=== PATIENT | female | born 1980 | race Caucasian/White ===

== ENCOUNTER 2018-07-21 17:20 | Emergency (ER) | payer SELFPAY ==
[~2018-07-21] VITALS: Ht 152.4 cm; Wt 82.0 kg
[2018-07-21 20:38] VITALS: BP 160/82
== END 2018-07-21 22:10 | disposition left against medical advice (07) ==
LOC: ER 17:43
DX: T62.91XA Toxic effect of unspecified noxious substance eaten as food, accidental (unintentional), initial encounter (principal); R11.2 Nausea with vomiting, unspecified; R19.7 Diarrhea, unspecified; Y92.89 Other specified places as the place of occurrence of the external cause
CPT/HCPCS: 99281

== ENCOUNTER 2020-09-28 18:38 | Inpatient (IN) | payer MEDICAID ==
[~2020-09-28] VITALS: Ht 152.4 cm; Wt 81.6 kg
[2020-09-28] MEDS ORDERED: SODIUM CHLORIDE 0.9% 1,000 ML IV ONE (19:15)
[2020-09-28 19:50] LABS: INR 1.4; PROTHROMBIN TIME 14.3 sec (9.6-11.0)
[2020-09-28 19:52] LABS: CHLORIDE 98 mEq/L (98-107)
[2020-09-28 19:56] LABS: ETHANOL BLOOD < 10 mg/dL
[2020-09-28 21:30] LABS: BASOPHILS % 0.4 % (0.0-2.0); HEMATOCRIT. 35.4 % (36.0-48.0); HEMOGLOBIN. 12.2 g/dL (12.0-16.0); LYMPHOCYTES % 11.7 % (20.0-50.0); MEAN CORPUSCULAR HEMOGLOBIN 34.9 pg (28.0-32.0); MEAN CORPUSCULAR VOLUME 101.7 fL (81.0-99.0); MONOCYTES % 10.2 % (2.0-8.0); NEUTROPHILS % 76.7 % (40.0-76.0); RED BLOOD CELL COUNT 3.48 mill/uL (4.2-5.4)
[2020-09-28 21:31] LABS: HEMATOCRIT 33.9 % (36.0-48.0); HEMOGLOBIN 11.9 g/dL (12.0-16.0); MEAN CORPUSCULAR HEMOGLOBIN 35.4 pg (28.0-32.0); MEAN CORPUSCULAR VOLUME 100.4 fL (81.0-99.0); RED BLOOD CELL COUNT 3.37 mill/uL (4.2-5.4); RED CELL DISTRIBUTION WIDTH 15.6 % (11.6-14.6)
[2020-09-28 21:55] LABS: PLATELET 22 x1000/uL (130-400)
[2020-09-28 22:34] LABS: MEAN PLATELET VOLUME 10.7 fl (7.4-10.4)
[2020-09-29 00:02] LABS: CLARITY URINE CLEAR (CLEAR); COLOR URINE DARK YELLOW (YELLOW); KETONES URINE TRACE (NEGATIVE); LEUKOCYTE ESTERASE URINE 1+ (NEGATIVE); NITRITE URINE POSITIVE (NEGATIVE); OCCULT BLOOD URINE NEGATIVE (NEGATIVE); PROTEIN URINE 1+ (NEGATIVE); SPECIFIC GRAVITY URINE 1.015 (1.005-1.030)
[2020-09-29 00:13] LABS: *AMPHETAMINES SCREEN URINE NEGATIVE (NEGATIVE)
[2020-09-29 00:14] LABS: *BARBITURATES SCREEN URINE NEGATIVE (NEGATIVE); *BENZODIAZEPINES SCREEN URINE NEGATIVE (NEGATIVE); *COCAINE SCREEN URINE NEGATIVE (NEGATIVE); METHADONE URINE SCREEN NEGATIVE (NEGATIVE); OPIATES URINE SCREEN NEGATIVE (NEGATIVE); PHENCYCLIDINE URINE SCREEN NEGATIVE (NEGATIVE)
[2020-09-29 00:15] LABS: CANNABINOID URINE SCREEN NEGATIVE (NEGATIVE)
[2020-09-29 05:00] VITALS: BP 119/78
[2020-09-29] MEDS ORDERED: LORAZEPAM 2MG/ML CPJ IV PRN (05:45)
[2020-09-29] MEDS: LEVETIRACETAM 500MG TABLET PO SCH ×2 (09:35→20:42)
[2020-09-29 09:41] VITALS: BP 120/77
[2020-09-29] MEDS ORDERED: CEFTRIAXONE 1 G PREMIX 50 ML IV SCH (10:00)
[2020-09-29] MEDS ORDERED: ONDANSETRON HCL 4MG/2ML INJ IV PRN (10:00)
[2020-09-29] MEDS ORDERED: ACETAMINOPHEN 325MG TABLET PO PRN (10:00)
[2020-09-29] MEDS: KETOROLAC 30MG/ML VIAL IV PRN ×2 (11:27→20:21)
[2020-09-29] MEDS ORDERED: CEFTRIAXONE 1,000 MG in DEXTROSE 5% WATER 50 ML IV SCH (11:30)
[2020-09-29 12:21] VITALS: BP 113/73
[2020-09-29 15:50] LABS: PLATELET 35 x1000/uL (130-400)
[2020-09-29 16:05] LABS: HEMATOCRIT 34.3 % (36.0-48.0); HEMOGLOBIN 11.7 g/dL (12.0-16.0); MEAN CORPUSCULAR HEMOGLOBIN 34.7 pg (28.0-32.0); MEAN CORPUSCULAR VOLUME 101.5 fL (81.0-99.0); RED BLOOD CELL COUNT 3.37 mill/uL (4.2-5.4); RED CELL DISTRIBUTION WIDTH 15.6 % (11.6-14.6)
[2020-09-29 16:08] VITALS: BP 113/71
[2020-09-29 16:14] LABS: PLATELET 26 x1000/uL (130-400)
[2020-09-29 16:27] LABS: CHLORIDE 102 mEq/L (98-107)
[2020-09-29] MEDS ORDERED: DIPHENHYDRAMINE 25MG CAPSULE PO PRN (17:15)
[2020-09-29] MEDS ORDERED: POTASSIUM CHLORIDE 20MEQ TABLET SR PO NR (18:45)
[2020-09-29 20:00] VITALS: BP 111/85
[2020-09-29] MEDS ORDERED: CHLORDIAZEPOXIDE 25MG CAPSULE PO SCH (22:00)
[2020-09-30] VITALS: BP 115/70
[2020-09-30 04:00] VITALS: BP 115/78
[2020-09-30] MEDS ORDERED: FOLIC ACID 1MG TABLET PO SCH (09:00)
[2020-09-30] MEDS ORDERED: MULTIVITAMINS,THER W-MINERALS TABLET PO SCH (09:00)
[2020-09-30] MEDS ORDERED: THIAMINE HCL 100MG TABLET PO SCH (09:00)
== END 2020-09-30 04:50 | disposition left against medical advice (07) | DRG 720 ==
LOC: ER 18:38 → ENRESERV 09-29 03:38 → 8WST 09-29 04:43
PROVIDERS: ADMIT Internal Medicine; ATTEND Internal Medicine
DX: A41.9 Sepsis, unspecified organism (principal); E87.2 Acidosis; D69.6 Thrombocytopenia, unspecified; E87.1 Hypo-osmolality and hyponatremia; G40.409 Other generalized epilepsy and epileptic syndromes, not intractable, without status epilepticus; K76.0 Fatty (change of) liver, not elsewhere classified; G90.8 Other disorders of autonomic nervous system; D53.9 Nutritional anemia, unspecified; F10.10 Alcohol abuse, uncomplicated; N39.0 Urinary tract infection, site not specified; Z90.49 Acquired absence of other specified parts of digestive tract; Z71.41 Alcohol abuse counseling and surveillance of alcoholic; Z79.899 Other long term (current) drug therapy
CPT/HCPCS: 36415; 70551; 71045; 76705; 80048; 80053; 80305; 80320; 81003; 83605; 85025; 85027; 93005; 99285; J0696; J1885; J7030; J7040; J7060; Q0163; G0480

== ENCOUNTER 2020-12-26 03:40 | Inpatient (IN) | payer MEDICAID ==
[~2020-12-26] VITALS: Ht 172.7 cm; Wt 65.8 kg
[2020-12-26] VITALS (9 sets, daily range): BP systolic 101–135; BP diastolic 67–78
[2020-12-26] MEDS ORDERED: PANTOPRAZOLE SODIUM 40 MG/VIAL IV STA (03:57)
[2020-12-26] MEDS ORDERED: ONDANSETRON HCL 4MG/2ML INJ IV STA (03:57)
[2020-12-26] MEDS ORDERED: SODIUM CHLORIDE 0.9% 1,000 ML IV ONE ×2 (04:00)
[2020-12-26 04:56] LABS: BASOPHILS % 0.5 % (0.0-2.0); EOSINOPHILS % 0.2 % (0.0-5.0); HEMATOCRIT. 25.9 % (36.0-48.0); HEMOGLOBIN. 8.9 g/dL (12.0-16.0); LYMPHOCYTES % 17.3 % (20.0-50.0); MEAN CORPUSCULAR HEMOGLOBIN 35.6 pg (28.0-32.0); MEAN CORPUSCULAR VOLUME 103.2 fL (81.0-99.0); MEAN PLATELET VOLUME 11.3 fl (7.4-10.4); MONOCYTES % 7.9 % (2.0-8.0); NEUTROPHILS % 74.1 % (40.0-76.0); PLATELET 51 x1000/uL (130-400); RED BLOOD CELL COUNT 2.51 mill/uL (4.2-5.4); RED CELL DISTRIBUTION WIDTH 15.2 % (11.6-14.6)
[2020-12-26 05:00] LABS: CHLORIDE 94 mEq/L (98-107)
[2020-12-26 05:04] LABS: INR 1.5; PROTHROMBIN TIME 15.9 sec (9.6-11.0)
[2020-12-26 05:06] LABS: ETHANOL BLOOD < 10 mg/dL
[2020-12-26 05:12] LABS: *AMPHETAMINES SCREEN URINE NEGATIVE (NEGATIVE)
[2020-12-26 05:13] LABS: *BARBITURATES SCREEN URINE NEGATIVE (NEGATIVE); *BENZODIAZEPINES SCREEN URINE NEGATIVE (NEGATIVE); *COCAINE SCREEN URINE NEGATIVE (NEGATIVE); METHADONE URINE SCREEN NEGATIVE (NEGATIVE); OPIATES URINE SCREEN NEGATIVE (NEGATIVE)
[2020-12-26 05:14] LABS: CANNABINOID URINE SCREEN NEGATIVE (NEGATIVE); PHENCYCLIDINE URINE SCREEN NEGATIVE (NEGATIVE)
[2020-12-26 05:23] LABS: HCG SCREEN NEGATIVE
[2020-12-26 05:30] LABS: HEPATITIS B SURFACE ANTIGEN NEGATIVE
[2020-12-26 05:59] LABS: HEPATITIS A AB IGM NEGATIVE (NEGATIVE)
[2020-12-26] MEDS ORDERED: DEXT 5%/0.9% NACL 1,000 ML IV SCH (10:15)
[2020-12-26] MEDS ORDERED: OCTREOTIDE ACETATE 50 MCG/ML 1ML IV NR (10:30)
[2020-12-26] MEDS ORDERED: THIAMINE HCL 100 MG in SODIUM CHLORIDE 0.9% 49 ML IV NR (11:00)
[2020-12-26] MEDS: OCTREOTIDE 1,000 MCG in SODIUM CHLORIDE 0.9% 98 ML IV SCH (11:22)
[2020-12-26] MEDS ORDERED: OCTREOTIDE 1,000 MCG in SODIUM CHLORIDE 0.9% 98 ML IV SCH (11:30)
[2020-12-26] MEDS: METOCLOPRAMIDE HCL 10MG/2ML VIAL IV SCH ×2 (12:09→19:30)
[2020-12-26] MEDS: PHYTONADIONE 10MG/ML AMP SUBCUT SCH (12:24)
[2020-12-26] MEDS ORDERED: PROPOFOL 200MG/20ML VIAL IV ONE ×3 (12:40→13:29)
[2020-12-26] MEDS ORDERED: LIDOCAINE HCL/PF 1% 10 MG/ML 5ML VIAL ONE (12:40)
[2020-12-26] MEDS ORDERED: PHENYLEPHRINE HCL 10 MG/ML 1ML (IV VIAL) IV ONE (13:08)
[2020-12-26] MEDS ORDERED: PHYTONADIONE 10 MG in DEXTROSE 5% WATER 50 ML IV STA (13:08)
[2020-12-26] MEDS ORDERED: MIDAZOLAM HCL 2 MG/2 ML VIAL ONE (13:18)
[2020-12-26] MEDS ORDERED: ONDANSETRON HCL 4MG/2ML INJ ONE (13:26)
[2020-12-26] MEDS ORDERED: MAGNESIUM 2 G PREMIX 50 ML IV NR (14:30)
[2020-12-26 14:33] LABS: HEMATOCRIT 19.7 % (36.0-48.0)
[2020-12-26] MEDS ORDERED: POTASSIUM PHOS,M-BASIC-D-BASIC 20 MMOL in DEXT 5% WATER 243.3333 ML IV NR (15:00)
[2020-12-26] MEDS ORDERED: ONDANSETRON HCL 4MG/2ML INJ IV PRN (17:45)
[2020-12-26] MEDS: PANTOPRAZOLE SODIUM 40 MG/VIAL IV SCH (19:30)
[2020-12-27] VITALS (17 sets, daily range): BP systolic 80–122; BP diastolic 31–87
[2020-12-27] MEDS ORDERED: DIPHENHYDRAMINE 50MG/ML VIAL IV PRN (00:30)
[2020-12-27] MEDS ORDERED: HYDROMORPHONE HCL/PF 2MG/ML CPJ IV NR (00:30)
[2020-12-27 00:37] LABS: HEMATOCRIT 30.4 % (36.0-48.0); HEMOGLOBIN 10.5 g/dL (12.0-16.0)
[2020-12-27] MEDS ORDERED: NALOXONE HCL 0.4MG/ML VIAL IV PRN (00:45)
[2020-12-27] MEDS ORDERED: MORPHINE SULFATE 2 MG/ML CPJ (NOT FOR IM USE) IV PRN (00:45)
[2020-12-27] MEDS: METOCLOPRAMIDE HCL 10MG/2ML VIAL IV SCH ×5 (01:17→23:52)
[2020-12-27] MEDS: DEXT 5%/0.9% NACL 1,000 ML IV SCH ×4 (01:17→23:15)
[2020-12-27] MEDS: MORPHINE SULFATE 2 MG/ML CPJ (NOT FOR IM USE) IV PRN ×2 (01:19→08:57)
[2020-12-27 06:10] LABS: INR 1.3; PROTHROMBIN TIME 13.4 sec (9.6-11.0)
[2020-12-27] MEDS: OCTREOTIDE 1,000 MCG in SODIUM CHLORIDE 0.9% 98 ML IV SCH ×2 (06:12→23:51)
[2020-12-27 06:17] LABS: CHLORIDE 105 mEq/L (98-107)
[2020-12-27 06:33] LABS: BASOPHILS % 1.1 % (0.0-2.0); EOSINOPHILS % 2.8 % (0.0-5.0); HEMATOCRIT. 30.4 % (36.0-48.0); HEMOGLOBIN. 10.3 g/dL (12.0-16.0); LYMPHOCYTES % 33.5 % (20.0-50.0); MEAN CORPUSCULAR HEMOGLOBIN 33.6 pg (28.0-32.0); MEAN CORPUSCULAR VOLUME 98.7 fL (81.0-99.0); MEAN PLATELET VOLUME 9.2 fl (7.4-10.4); MONOCYTES % 12.8 % (2.0-8.0); NEUTROPHILS % 49.8 % (40.0-76.0); PLATELET 55 x1000/uL (130-400); RED BLOOD CELL COUNT 3.08 mill/uL (4.2-5.4); RED CELL DISTRIBUTION WIDTH 19.1 % (11.6-14.6)
[2020-12-27] MEDS ORDERED: POTASSIUM CHLORIDE INJ 40 MEQ in DEXT 5% WATER 250 ML IV ONE (08:00)
[2020-12-27] MEDS: PANTOPRAZOLE SODIUM 40 MG/VIAL IV SCH ×2 (08:40→20:28)
[2020-12-27] MEDS: PHYTONADIONE 10MG/ML AMP SUBCUT SCH (08:41)
[2020-12-27] MEDS ORDERED: FOLIC ACID 1 MG, THIAMINE HCL 100 MG, MVI, ADULT NO.1 10 ML in DEXTROSE 5% WATER 1,000 ML IV SCH (09:00)
[2020-12-27] MEDS: FOLIC ACID 1 MG, THIAMINE HCL 100 MG, MVI, ADULT NO.1 10 ML in DEXTROSE 5% WATER 1,000 ML IV SCH (12:38)
[2020-12-28] VITALS (17 sets, daily range): BP systolic 88–128; BP diastolic 54–81
[2020-12-28] MEDS ORDERED: HYDROCODONE/ACETAMINOPHEN 5/325MG TABLET PO PRN (00:15)
[2020-12-28] MEDS ORDERED: NALOXONE HCL 0.4MG/ML VIAL IV PRN (00:30)
[2020-12-28] MEDS: METOCLOPRAMIDE HCL 10MG/2ML VIAL IV SCH ×3 (06:18→18:13)
[2020-12-28 06:46] LABS: BASOPHILS % 0.8 % (0.0-2.0); EOSINOPHILS % 4.5 % (0.0-5.0); HEMATOCRIT. 30.9 % (36.0-48.0); HEMOGLOBIN. 10.5 g/dL (12.0-16.0); LYMPHOCYTES % 20.3 % (20.0-50.0); MEAN CORPUSCULAR HEMOGLOBIN 34.1 pg (28.0-32.0); MEAN CORPUSCULAR VOLUME 100.4 fL (81.0-99.0); MEAN PLATELET VOLUME 8.9 fl (7.4-10.4); MONOCYTES % 8.6 % (2.0-8.0); NEUTROPHILS % 65.8 % (40.0-76.0); PLATELET 60 x1000/uL (130-400); RED BLOOD CELL COUNT 3.08 mill/uL (4.2-5.4); RED CELL DISTRIBUTION WIDTH 18.8 % (11.6-14.6)
[2020-12-28 07:13] LABS: CHLORIDE 104 mEq/L (98-107)
[2020-12-28] MEDS: PHYTONADIONE 10MG/ML AMP SUBCUT SCH (09:06)
[2020-12-28] MEDS: PANTOPRAZOLE SODIUM 40 MG/VIAL IV SCH ×2 (09:06→20:41)
[2020-12-28] MEDS: FOLIC ACID 1 MG, THIAMINE HCL 100 MG, MVI, ADULT NO.1 10 ML in DEXTROSE 5% WATER 1,000 ML IV SCH ×2 (09:12→09:19)
[2020-12-28] MEDS ORDERED: PROP10TA10 MT (10:53)
[2020-12-28] MEDS ORDERED: OMEP40CA12 MT (10:53)
[2020-12-28] MEDS ORDERED: SUCR1TAB30 MT (10:53)
[2020-12-28] MEDS ORDERED: SODIUM CHLORIDE 0.9% 1,000 ML IV NR (12:45)
[2020-12-28] MEDS ORDERED: CEFTRIAXONE 1 G PREMIX 50 ML IV SCH (16:15)
[2020-12-28 16:24] LABS: HEMATOCRIT 27.8 % (36.0-48.0); HEMOGLOBIN 9.9 g/dL (12.0-16.0)
[2020-12-28 17:34] LABS: CLARITY URINE CLEAR (CLEAR); COLOR URINE YELLOW (YELLOW); KETONES URINE NEGATIVE (NEGATIVE); LEUKOCYTE ESTERASE URINE TRACE (NEGATIVE); NITRITE URINE NEGATIVE (NEGATIVE); OCCULT BLOOD URINE TRACE (NEGATIVE); PH URINE 6.5 (4.5-8.0); PROTEIN URINE NEGATIVE (NEGATIVE); SPECIFIC GRAVITY URINE 1.006 (1.005-1.030)
[2020-12-28] MEDS: CEFTRIAXONE 1,000 MG in DEXTROSE 5% WATER 50 ML IV SCH (18:13)
[2020-12-28] MEDS: ACETAMINOPHEN 325MG TABLET PO PRN (18:15)
[2020-12-28 19:40] LABS: HEMATOCRIT. 27.5 % (36.0-48.0); HEMOGLOBIN. 9.9 g/dL (12.0-16.0); MEAN CORPUSCULAR HEMOGLOBIN 34.6 pg (28.0-32.0); MEAN CORPUSCULAR VOLUME 96.5 fL (81.0-99.0); MEAN PLATELET VOLUME 9.2 fl (7.4-10.4); PLATELET 54 x1000/uL (130-400); RED BLOOD CELL COUNT 2.85 mill/uL (4.2-5.4); RED CELL DISTRIBUTION WIDTH 18.1 % (11.6-14.6)
[2020-12-28 20:52] LABS: PLATELET ESTIMATE DECREASED
[2020-12-29] VITALS (11 sets, daily range): BP systolic 92–116; BP diastolic 53–74
[2020-12-29] MEDS: ACETAMINOPHEN 325MG TABLET PO PRN ×2 (01:35→10:15)
[2020-12-29] MEDS: METOCLOPRAMIDE HCL 10MG/2ML VIAL IV SCH ×5 (01:35→23:53)
[2020-12-29 07:48] LABS: BASOPHILS % 0.4 % (0.0-2.0); EOSINOPHILS % 0.1 % (0.0-5.0); HEMATOCRIT. 29.3 % (36.0-48.0); HEMOGLOBIN. 10.1 g/dL (12.0-16.0); LYMPHOCYTES % 9.1 % (20.0-50.0); MEAN CORPUSCULAR HEMOGLOBIN 33.9 pg (28.0-32.0); MEAN CORPUSCULAR VOLUME 98.6 fL (81.0-99.0); MEAN PLATELET VOLUME 9.9 fl (7.4-10.4); MONOCYTES % 9.1 % (2.0-8.0); NEUTROPHILS % 81.3 % (40.0-76.0); PLATELET 56 x1000/uL (130-400); RED BLOOD CELL COUNT 2.97 mill/uL (4.2-5.4); RED CELL DISTRIBUTION WIDTH 18.4 % (11.6-14.6)
[2020-12-29 08:41] LABS: CHLORIDE 98 mEq/L (98-107)
[2020-12-29] MEDS: PANTOPRAZOLE SODIUM 40 MG/VIAL IV SCH ×2 (08:50→20:23)
[2020-12-29] MEDS: DEXT 5%/0.9% NACL 1,000 ML IV SCH (08:51)
[2020-12-29] MEDS: POTASSIUM CHLORIDE 20MEQ/PACKET PO SCH ×2 (11:41→15:21)
[2020-12-29] MEDS ORDERED: MAGNESIUM 4 G PREMIX 100 ML IV NR (12:30)
[2020-12-29] MEDS ORDERED: VANCOMYCIN 1250MG in DEXTROSE 5% WATER 250ML IV NR (16:30)
[2020-12-29] MEDS: CEFTRIAXONE 1,000 MG in DEXTROSE 5% WATER 50 ML IV SCH (17:48)
[2020-12-29] MEDS: VANCOMYCIN 750 MG PREMIX 150 ML IV SCH (23:53)
[2020-12-30] VITALS (10 sets, daily range): BP systolic 91–119; BP diastolic 50–74
[2020-12-30] MEDS: DEXT 5%/0.9% NACL 1,000 ML IV SCH (02:39)
[2020-12-30] MEDS: METOCLOPRAMIDE HCL 10MG/2ML VIAL IV SCH ×2 (05:34→13:08)
[2020-12-30 07:51] LABS: HEMATOCRIT. 28.6 % (36.0-48.0); HEMOGLOBIN. 9.7 g/dL (12.0-16.0); MEAN CORPUSCULAR HEMOGLOBIN 34.2 pg (28.0-32.0); MEAN CORPUSCULAR VOLUME 100.5 fL (81.0-99.0); MEAN PLATELET VOLUME 10.7 fl (7.4-10.4); PLATELET 66 x1000/uL (130-400); RED BLOOD CELL COUNT 2.85 mill/uL (4.2-5.4); RED CELL DISTRIBUTION WIDTH 18.2 % (11.6-14.6)
[2020-12-30 08:05] LABS: CHLORIDE 104 mEq/L (98-107)
[2020-12-30 08:23] LABS: PHOSPHORUS 2.4 mg/dL (2.5-4.9)
[2020-12-30] MEDS: PANTOPRAZOLE SODIUM 40 MG/VIAL IV SCH (09:25)
[2020-12-30] MEDS: VANCOMYCIN 750 MG PREMIX 150 ML IV SCH (09:25)
[2020-12-30] MEDS: FOLIC ACID 1 MG, THIAMINE HCL 100 MG, MVI, ADULT NO.1 10 ML in DEXTROSE 5% WATER 1,000 ML IV SCH (10:14)
[2020-12-30 10:54] LABS: PLATELET ESTIMATE DECREASED
[2020-12-30] MEDS ORDERED: POTASSIUM CHLORIDE 20MEQ TABLET SR PO SCH (11:15)
[2020-12-30] MEDS: ACETAMINOPHEN 325MG TABLET PO PRN (15:40)
[2020-12-30] MEDS ORDERED: SUCRALFATE 1 G/10 ML UDC PO SCH (17:30)
== END 2020-12-30 17:54 | disposition left against medical advice (07) | DRG 720 ==
LOC: ER 03:40 → MICUSO 05:06 → EDBEDREQTM 05:19 → EDBEDREQ 05:19 → EDBEDREQSVC 08:14 → ER 13:46 → 5EST 20:18
PROVIDERS: ADMIT Internal Medicine; ATTEND Internal Medicine
PROC: 0DB78ZX Excision of Stomach, Pylorus, Via Natural or Artificial Opening Endoscopic, Diagnostic (ICD-10-PCS; principal; 2020-12-26)
PROC: 30233K1 Transfusion of Nonautologous Frozen Plasma into Peripheral Vein, Percutaneous Approach (ICD-10-PCS; 2020-12-26)
PROC: 30233N1 Transfusion of Nonautologous Red Blood Cells into Peripheral Vein, Percutaneous Approach (ICD-10-PCS; 2020-12-26)
PROC: 06L38CZ Occlusion of Esophageal Vein with Extraluminal Device, Via Natural or Artificial Opening Endoscopic (ICD-10-PCS; 2020-12-26)
DX: A41.01 Sepsis due to Methicillin susceptible Staphylococcus aureus (principal); R57.8 Other shock; K27.4 Chronic or unspecified peptic ulcer, site unspecified, with hemorrhage; K22.11 Ulcer of esophagus with bleeding; K22.6 Gastro-esophageal laceration-hemorrhage syndrome; D68.9 Coagulation defect, unspecified; D69.6 Thrombocytopenia, unspecified; E83.39 Other disorders of phosphorus metabolism; E87.1 Hypo-osmolality and hyponatremia; E83.42 Hypomagnesemia; K76.6 Portal hypertension; E87.6 Hypokalemia; K29.70 Gastritis, unspecified, without bleeding; I85.00 Esophageal varices without bleeding; K64.4 Residual hemorrhoidal skin tags; K31.89 Other diseases of stomach and duodenum; D53.9 Nutritional anemia, unspecified; Z20.822 Contact with and (suspected) exposure to COVID-19; Z79.899 Other long term (current) drug therapy; Z82.49 Family history of ischemic heart disease and other diseases of the circulatory system; Z90.49 Acquired absence of other specified parts of digestive tract; D50.0 Iron deficiency anemia secondary to blood loss (chronic); F10.11 Alcohol abuse, in remission; K70.0 Alcoholic fatty liver
CPT/HCPCS: 36415; 36430; 71045; 76700; 80048; 80053; 80305; 80320; 81003; 82270; 83605; 83735; 84100; 84132; 84145; 84703; 85014; 85018; 85025; 86705; 86709; 86803; 86850; 86900; 86920; 86927; 87077; 87186; 87340; 87426; 88305; 88312; 88313; 93005; 99291; C9113; J0696; J1200; J2250; J2270; J2354; J2370; J2405; J2704; J2765; J3370; J3411; J3430; J3475; J3480; J3490; J7030; J7040; J7042; J7050; J7060; J7070; P9016; P9017; A4315; G0480

== ENCOUNTER 2022-04-19 17:20 | Emergency (ER) | payer MEDICAID ==
[~2022-04-19] VITALS: Ht 154.9 cm; Wt 90.0 kg
[~2022-04-19 17:20] MED LIST: LEVO-65 MT; OMEP40CA20 MT; PROP10TA10 MT
[2022-04-19 18:12] LABS: BASOPHILS % 0.6 % (0.0-2.0); EOSINOPHILS % 1.3 % (0.0-5.0); HEMATOCRIT. 39.1 % (36.0-48.0); HEMOGLOBIN. 13.1 g/dL (12.0-16.0); LYMPHOCYTES % 17.5 % (20.0-50.0); MEAN CORPUSCULAR HEMOGLOBIN 31.1 pg (28.0-32.0); MEAN CORPUSCULAR VOLUME 92.9 fL (81.0-99.0); MONOCYTES % 9.1 % (2.0-8.0); NEUTROPHILS % 71.5 % (40.0-76.0); PLATELET 61 x1000/uL (130-400); RED BLOOD CELL COUNT 4.21 mill/uL (4.2-5.4); RED CELL DISTRIBUTION WIDTH 19.5 % (11.6-14.6)
[2022-04-19 18:20] LABS: CHLORIDE 100 mEq/L (98-107)
[2022-04-19 18:28] LABS: ETHANOL BLOOD < 10 mg/dL
[2022-04-19] MEDS ORDERED: LEVETIRACETAM 500MG PREMIX 100 ML IV ONE (19:15)
[2022-04-19 21:52] VITALS: BP 148/69
== END 2022-04-19 22:15 | disposition home or self-care (01) ==
LOC: ER 17:20
DX: G40.509 Epileptic seizures related to external causes, not intractable, without status epilepticus (principal); Z98.890 Other specified postprocedural states; R42 Dizziness and giddiness
CPT/HCPCS: 36415; 80053; 80320; 85025; 93005; 99284; G0480

== ENCOUNTER 2023-07-01 09:07 | Emergency (ER) | payer MEDICAID ==
[~2023-07-01] VITALS: Ht 165.1 cm; Wt 81.0 kg
[2023-07-01 09:17] VITALS: O2SAT 97
[2023-07-01 10:00] LABS: DIFFERENTIAL COMMENT 0; EOSINOPHILS % 4.2 % (0.0-5.0); HEMOGLOBIN. 12.8 g/dL (12.0-16.0); LYMPHOCYTES % 13.5 % (20.0-50.0); MEAN CORPUSCULAR HEMOGLOBIN 33.9 pg (28.0-32.0); MEAN CORPUSCULAR HGB CONC 33.6 g/dL (31.0-37.0); MEAN CORPUSCULAR VOLUME 100.9 fL (81.0-99.0); MEAN PLATELET VOLUME 9.3 fl (7.4-10.4); MONOCYTES % 10.6 % (2.0-8.0); NEUTROPHILS % 70.7 % (40.0-76.0); PLATELET 174 x1000/uL (130-400); RED BLOOD CELL COUNT 3.77 mill/uL (4.2-5.4); RED CELL DISTRIBUTION WIDTH 16.1 % (11.6-14.6); WHITE BLOOD COUNT 9.3 x1000/uL (4.5-11.0)
[2023-07-01 10:11] LABS: INR 1.1; PROTHROMBIN TIME 12.3 sec (9.6-11.0)
[2023-07-01 10:25] LABS: ALANINE AMINOTRANSFERASE 16 IU/L (10-49); ALBUMIN 2.5 g/dL (3.2-4.8); ASPARTATE AMINOTRANSFERASE 75 IU/L (<34); BILIRUBIN TOTAL 1.3 mg/dL (0.1-1.0); CALCIUM 7.9 mg/dL (8.7-10.4); CARBON DIOXIDE 23 mEq/L (21-32); CHLORIDE 106 mEq/L (98-107); CREATININE 0.5 mg/dL (0.6-1.0); GLUCOSE 102 mg/dL (70-105); POTASSIUM 3.9 mEq/L (3.5-5.1); SODIUM 136 mEq/L (136-145)
[2023-07-01 10:39] LABS: ETHANOL BLOOD < 10 mg/dL (<10); UREA NITROGEN BLOOD < 5 mg/dL (9-23)
[2023-07-01 12:33] LABS: CLARITY URINE TURBID (CLEAR); COLOR URINE ORANGE (YELLOW); GLUCOSE URINE NEGATIVE (NEGATIVE); KETONES URINE NEGATIVE (NEGATIVE); LEUKOCYTE ESTERASE URINE 1+ (NEGATIVE); NITRITE URINE POSITIVE (NEGATIVE); OCCULT BLOOD URINE NEGATIVE (NEGATIVE); PH URINE 5.5 (4.5-8.0); PROTEIN URINE TRACE (NEGATIVE); SPECIFIC GRAVITY URINE 1.026 (1.005-1.030)
[2023-07-01 13:09] LABS: MUCUS URINE 1+ /lpf (< = 2+); SQUAMOUS EPITHELIAL CELL URINE 3+ /lpf (RARE/1+)
[2023-07-01 13:10] LABS: BACTERIA URINE 4+
[2023-07-01 13:11] LABS: RBC URINE 0-2 /hpf (0-2); WBC URINE 15-25 /hpf (0-2)
[2023-07-01] MEDS: LEVOFLOXACIN 500MG TABLET PO ONE (16:24)
[2023-07-01 17:17] VITALS: BP 115/73; PULSE 100; RESP 16; TEMP 98.4
== END 2023-07-01 17:30 | disposition short-term general hospital (02) ==
LOC: ER 09:23
DX: N39.0 Urinary tract infection, site not specified (principal); R18.8 Other ascites; K74.60 Unspecified cirrhosis of liver; Z98.890 Other specified postprocedural states
CPT/HCPCS: 80053; 81003; 80320; 83880; 83690; 85025; 85610; 87086; 36415; 71045; 76700; 99285; Z7610 ×3; G0480